=== PATIENT | female | born 1950 | race African-American/Black ===

== ENCOUNTER 2017-11-17 09:52 | Emergency (ER) | payer OTHER ==
[~2017-11-17] VITALS: Ht 167.6 cm; Wt 68.0 kg
[2017-11-17 10:08] VITALS: Ht 167.6 cm; Wt 68.0 kg
[2017-11-17 12:53] VITALS: BP 130/79
== END 2017-11-17 12:53 | disposition home or self-care (01) ==
LOC: ED 09:52
DX: S20.219A Contusion of unspecified front wall of thorax, initial encounter (principal); S09.90XA Unspecified injury of head, initial encounter; V49.40XA Driver injured in collision with unspecified motor vehicles in traffic accident, initial encounter; W22.10XA Striking against or struck by unspecified automobile airbag, initial encounter; Y93.89 Activity, other specified; Y99.8 Other external cause status; Y92.89 Other specified places as the place of occurrence of the external cause
CPT/HCPCS: Q0092; Q0162